=== PATIENT | female | born 1980 | race Native Hawaiian/Other Pacific Islander ===

== ENCOUNTER 2017-03-21 11:07 | Emergency (ER) | payer OTHER ==
[~2017-03-21] VITALS: Ht 160 cm; Wt 68.0 kg
[~2017-03-21 11:07] MED LIST: ALBU90AE13 INH
[2017-03-21 11:11] VITALS: TEMP 98.2
[2017-03-21 12:10] VITALS: BP 132/74
== END 2017-03-21 12:10 | disposition home or self-care (01) ==
LOC: ED 11:07
DX: H92.01 Otalgia, right ear (principal); H61.21 Impacted cerumen, right ear
CPT/HCPCS: 99282